=== PATIENT | female | born 1950 | race Caucasian/White ===

== ENCOUNTER 2019-05-27 14:34 | Emergency (ER) | payer OTHER, SELFPAY ==
[2019-05-27 14:48] VITALS: BP 159/94; PULSE 91; RESP 18; TEMP 36.3; O2SAT 98; BMI 21.2
--- NOTE | 2019-05-27 15:01 | ED.GENADULT ---
HPI - General Adult General Chief complaint: Abdominal Pain Stated complaint: NAUSEA FEVER CHILLS CANT EAT Time Seen by Provider: 05/27/19 15:00 Source: patient Mode of arrival: Family Vehicle Limitations: no limitations History of Present Illness HPI narrative: 69-year-old woman presents with 6 days of nausea vomiting dry heaves she is able to keep some fluids down but feeling that she is getting progressively worse. Now with increasing tremor increasing global weakness. She has not had diarrhea and does report that she has very slow bowels and typically does a coffee enema every morning and has a bowel movement after this. She has been having brief episodes of hot and cold (episodes lasting less than a minute a piece) no measured temperatures, no cough, she has mild right lower quadrant pain on deep palpation only. She describes no rashes and notes that she is able to maintain her weight with liquids only and has not lost significant amount of weight recently. She has had a similar episode approximately 6 months ago with no clear diagnosis found at that time Related Data Home Medications Medication Instructions Recorded Confirmed MULTIVITAMIN (Multivitamin 1 cap PO EVERY DAY #0 10/17/07 -) CALCIUM CITRATE (#CORTEZ-CITRATE) 250 mg PO QDAY #0 04/13/11 CHOLECALCIFEROL (VITAMIN D3) 2,000 iu PO QDAY #0 04/13/11 (Vitamin D) CYANOCOBALAMIN (VITAMIN B-12) 1,000 mcg PO QDAY #0 04/13/11 (Vitamin B-12) Pyridoxine (#VITAMIN B6) #0 04/13/11 Previous Rx's Medication Instructions Recorded ondansetron HCl [Zofran] 4 mg PO Q8H PRN #14 tab 05/27/19 Allergies Allergy/AdvReac Type Severity Reaction Status Date / Time amoxicillin AdvReac Gastrointestinal Verified 05/27/19 14:55 Upset clindamycin AdvReac Gastrointestinal Verified 05/27/19 14:55 Upset Penicillins AdvReac Gastrointestinal Verified 05/27/19 14:55 Upset Review of Systems Review of Systems ROS Unobtainable: All systems reviewed & are unremarkable except as noted in HPI and below Patient History Social History Smoking Status: Never smoker Smoking Status: Never smoker alcohol intake frequency: 3 or more drinks per day Alcohol type: wine Substance Use Type: does not use Exam Narrative Exam Narrative: General: Healthy appearing, in mild distress. Able to give a complete and coherent history. Well-nourished well-developed HEENT: Mildly dry mucous membranes, normal sclera with reactive pupils, Neck: No JVD, supple Respiratory: Lungs are clear to auscultation, no wheezing no rales no rhonchi. Full and symmetrical air movement Cardiac: Regular rate and rhythm no murmurs no bruits Abdomen: Soft, mild tenderness with deep palpation in the right lower quadrant, good bowel tones, no flank pain Skin: Warm and dry, no rashes Neurologic: Grossly neurologically intact with no obvious asymmetries. She does have a bilateral coarse tremor in both upper extremities Extremities: No trauma, well perfused Psych: Cooperative, appropriate insight and affect Initial Vital Signs Initial Vital Signs: Vital Signs Temperature 97.4 F L 05/27/19 14:48 Pulse Rate 91 H 05/27/19 14:48 Respiratory Rate 18 05/27/19 14:48 Blood Pressure 159/94 H 05/27/19 14:48 Pulse Oximetry 98 05/27/19 14:48 Course Orders Ordered: ED Orders 05/27/19 15:15 XR abdomen 1V Stat 05/27/19 15:36 Complete Blood Count AUTO DIFF Stat Comprehensive Metabolic Panel Stat Lipase Stat Thyroid Stimulating Hormone Stat Discontinued Medications Sodium Chloride (Normal Saline 0.9%) 500 mls @ 1,000 mls/hr IV BOLUS ONE Stop: 05/27/19 15:42 Last Infusion: 05/27/19 16:22 Dose: 0 mls/hr Documented by: Admin: 05/27/19 15:52 Dose: 1,000 mls/hr Documented by: SPENCER Metoclopramide HCl (Reglan) 10 mg IV NOW ONE Stop: 05/27/19 15:14 Last Admin: 05/27/19 15:53 Dose: 10 mg Documented by: SPENCER Ondansetron HCl (Zofran) 4 mg IV NOW ONE Stop: 05/27/19 15:14 Last Admin: 05/27/19 15:53 Dose: 4 mg Documented by: SPENCER Vital Signs Vital signs: Vital Signs - 8 hr 05/27/19 14:48 05/27/19 16:00 05/27/19 16:35 Temperature 97.4 F L Pulse Rate 91 H 88 87 Respiratory Rate 18 10 L 11 L Blood Pressure 159/94 H Blood Pressure [Left Arm] 132/75 125/80 Pulse Oximetry 98 96 97 05/27/19 17:05 Temperature Pulse Rate 99 H Respiratory Rate 19 Blood Pressure Blood Pressure [Left Arm] 120/68 Pulse Oximetry 98 Medical Decision Making Differential Diagnosis Differential Diagnosis: Dehydration, acute renal failure, severe constipation, delayed gastric empt Medical Records Medical records reviewed: Yes I reviewed the patient's medical records. Lab Data Lab results reviewed: Yes I reviewed the patient's lab results. Result diagrams: 05/27/19 15:36 05/27/19 15:36 Labs: Lab Results 05/27/19 05/27/19 05/27/19 Range/Units 15:36 15:36 15:36 WBC 3.2 L (4.5-11.0) X10^3/uL RBC 3.89 L (4.0-5.2) X10^6/uL Hgb 13.5 (12.0-16.0) g/dL Hct 38.2 (36-46) % MCV 98.2 (80-100) fL MCH 34.8 H (26-34) PG MCHC 35.5 (30-36) % RDW 13.5 (11.6-14.8) % Plt Count 199 (150-400) X10^3/uL Neut % (Auto) 64.9 (50-75) % Lymph % (Auto) 22.6 L (25-40) % [place] % (Auto) 11.7 (3-14) % Eos % (Auto) 0.2 L (2-4) % Baso % (Auto) 0.6 (0-2) % Neut # (Auto) 2100 (3691-5344) /uL Lymph # (Auto) 700 L (4827-1700) /uL [place] # (Auto) 400 (0-900) /uL Eos # (Auto) 0 (0-450) /uL Baso # (Auto) 0 (0-100) /uL Sodium 137 (137-145) mmol/L Potassium 3.4 (3.4-5.1) mmol/L Chloride 99 (98-107) mmol/L Carbon Dioxide 27 (22-32) mmol/L BUN 5 L (7-17) mg/dL Creatinine 0.50 L (0.52-1.04) mg/dL Estimated GFR > 60.0 (>60) mL/min BUN/Creatinine Ratio 10.0 (6-22) Glucose 102 (80-110) mg/dL Calcium 9.7 (8.4-10.2) mg/dL Total Bilirubin 0.7 (0.2-1.3) mg/dL AST 78 H (14-36) IU/L ALT 47 H (<35) IU/L Alkaline Phosphatase 98 (38-126) U/L Total Protein 7.8 (6.3-8.2) g/dL Albumin 4.8 (3.5-5.0) g/dL Globulin 3.0 (1.7-4.1) g/dL Albumin/Globulin Ratio 1.6 (1.0-2.8) Lipase 77 (23-300) U/L TSH 1.43 (0.47-4.68) uIU/mL Urine Dip Bedside Urine Glucose Negative Bedside Urine Bilirubin - Negative Bedside Urine Ketone - Negative Urine Specific [place] 1.005 Bedside Urine Occult Blood - Negative Bedside Urine pH 6.5 Bedside Urine Protein - Negative Bedside Urine Urobilinogen - Negative Bedside Urine Nitrite - Negative Bedside Urine Leukocytes - Negative Esterase Point of care testing: Urine Dip Bedside Urine Glucose Negative Bedside Urine Bilirubin - Negative Bedside Urine Ketone - Negative Urine Specific [place] 1.005 Bedside Urine Occult Blood - Negative Bedside Urine pH 6.5 Bedside Urine Protein - Negative Bedside Urine Urobilinogen - Negative Bedside Urine Nitrite - Negative Bedside Urine Leukocytes - Negative Esterase Imaging Data Xray abd: Attestation: I personally reviewed and interpreted this imaging study as follows: Radiologist's impression: IMPRESSION: 1. Small to moderate amount of fecal loading in the colon. 2. No evidence of bowel obstruction. Dictated by: Javi Silverman M.D. on 05/27/2019 at 15:03 Discharge Plan Departure Patient Disposition: Home Clinical Impression: Nausea & vomiting Qualifiers: Vomiting type: unspecified Vomiting Intractability: non-intractable Qualified Code(s): R11.2 - Nausea with vomiting, unspecified Instructions: DI for Nausea -- Adult Activity Restrictions/Additional Instructions: Thank you for coming in today. I am pleased slight you know that your lab work was quite reassuring. Of note you're white blood cell count, the CellCept 5 infection, was slightly low. It would be worth talking with Dr. Richmond about this in about a month to see if he feels it is appropriate to recheck. There is no evidence of kidney dysfunction nor other acute life-threatening issues. The Zofran seemed to help significantly with the nausea so I am going to send her home with a prescription for oral Zofran/ondansetron to use as needed should you have for current episodes of nausea. If you're not improving please follow up with her primary care physician. If you develop severe retching, fevers, blood in her emesis or blood in her stools or simply unable to keep any foods down feel free to return to the emergency room for additional evaluation I wish you the best Prescriptions: New ondansetron HCl [Zofran] 4 mg tablet 4 mg PO Q8H PRN (Reason: nausea and vomiting) Qty: 14 RF: 0 No Action MULTIVITAMIN (Multivitamin -) 1 cap PO EVERY DAY Qty: 0 RF: 0 CYANOCOBALAMIN (VITAMIN B-12) (Vitamin B-12) 1,000 mcg PO QDAY Qty: 0 RF: 0 CHOLECALCIFEROL (VITAMIN D3) (Vitamin D) 2,000 iu PO QDAY Qty: 0 RF: 0 Pyridoxine (#VITAMIN B6) Qty: 0 RF: 0 CALCIUM CITRATE (#CORTEZ-CITRATE) 250 mg PO QDAY Qty: 0 RF: 0 Referrals: Todd Richmond MD [Primary Care Provider] -
--- NOTE | 2019-05-27 15:15 | DI.RAD.S_ITS ---
PROCEDURE: XR ABDOMEN 1V INDICATIONS: Abdominal pain, evaluate stool load TECHNIQUE: One view of the abdomen acquired. COMPARISON: None. FINDINGS: Surgical changes and devices: None. Bowel: Bowel gas pattern is within normal limits. There is a small to moderate amount of fecal load in the colon. Soft tissues: No suspicious abdominal calcifications. Bones: No suspicious bony lesions. IMPRESSION: 1. Small to moderate amount of fecal loading in the colon. 2. No evidence of bowel obstruction. Dictated by: Javi Silverman M.D. on 05/27/2019 at 15:03 Approved by: Javi Silverman M.D. on 05/27/2019 at 15:07
[2019-05-27 15:43] LABS: Add Manual Diff / Slide Review NO; Basophils Absolute Auto 0 /uL (0-100); Basophils Percent Auto 0.6 % (0-2); Eosinophils Absolute Auto 0 /uL (0-450); Eosinophils Percent Auto 0.2 % (2-4); Hematocrit 38.2 % (36-46); Hemoglobin 13.5 g/dL (12.0-16.0); Lymphocytes Absolute Auto 700 /uL (1100-4500); Lymphocytes Percent Auto 22.6 % (25-40); Mean Corpuscular HGB Conc 35.5 % (30-36); Mean Corpuscular Hemoglobin 34.8 PG (26-34); Mean Corpuscular Volume 98.2 fL (80-100); Monocytes Absolute Auto 400 /uL (0-900); Monocytes Percent Auto 11.7 % (3-14); Neutrophils Absolute Auto 2100 /uL (1500-7000); Neutrophils Percent Auto 64.9 % (50-75); Platelet Count 199 X10^3/uL (150-400); Red Blood Cell Count 3.89 X10^6/uL (4.0-5.2); Red Cell Distribution Width 13.5 % (11.6-14.8); White Blood Cell Count 3.2 X10^3/uL (4.5-11.0)
[2019-05-27] MEDS: SODIUM CHLORIDE 0.9% 500 ML 1000 ML IV (15:52)
[2019-05-27] MEDS: METOCLOPRAMIDE 10 MG/2 ML INJ IV (15:53)
[2019-05-27] MEDS: ONDANSETRON 4 MG/2 ML INJ IV (15:53)
[2019-05-27 15:54] LABS: Alanine Aminotransferase 47 IU/L (<35); Albumin 4.8 g/dL (3.5-5.0); Albumin Globulin Ratio 1.6 (1.0-2.8); Alkaline Phosphatase 98 U/L (38-126); Aspartate Aminotransferase 78 IU/L (14-36); Bilirubin Total 0.7 mg/dL (0.2-1.3); Blood Urea Nitrogen 5 mg/dL (7-17); Calcium 9.7 mg/dL (8.4-10.2); Carbon Dioxide 27 mmol/L (22-32); Chloride 99 mmol/L (98-107); Estimated Glomerular Filt Rate > 60.0 mL/min (>60); Glucose 102 mg/dL (80-110); HEMOLYSIS < 15 (0-50); Lipase 77 U/L (23-300); Potassium 3.4 mmol/L (3.4-5.1); Sodium 137 mmol/L (137-145); Total Protein 7.8 g/dL (6.3-8.2)
[2019-05-27 16:00] VITALS: BP 132/75; PULSE 88; RESP 10; O2SAT 96
[2019-05-27 16:35] VITALS: BP 125/80; PULSE 87; RESP 11; O2SAT 97
[2019-05-27 16:47] LABS: Thyroid Stimulating Hormone 1.43 uIU/mL (0.47-4.68)
[2019-05-27 17:05] VITALS: BP 120/68; PULSE 99; RESP 19; O2SAT 98
[2019-05-27 18:07] VITALS: BP 140/80; PULSE 93; RESP 19; O2SAT 97
== END 2019-05-27 18:11 | disposition home or self-care (01) ==
PROVIDERS: Emergency Provider Emergency Medicine; Family Provider Family Medicine; PCP Family Medicine
DX: R11.2 Nausea with vomiting, unspecified (principal); R79.89 Other specified abnormal findings of blood chemistry
CPT/HCPCS: 36415; 74018; 80053; 81003; 83690; 84443; 85025; 96374; 96375; 99284; J2405; J2765

== ENCOUNTER → 2019-12-11 12:26 | Outpatient (CLI) | payer MEDICARE, SELFPAY ==
--- NOTE | 2019-12-11 12:28 | DI.RAD.S_ITS ---
PROCEDURE: XR LUMBAR SPINE MIN 4V INDICATIONS: post lami syndrome TECHNIQUE: 5 views of the lumbar spine were acquired. COMPARISON: Outside Facility, RG, XR LUMBAR SPINE 6+ VIEWS, 10/09/2019, 14:37. FINDINGS: Bones: 5 nonrib-bearing vertebrae are present. There is normal bony alignment. Multilevel severe disc space narrowing is present throughout the lumbar spine. Severe foraminal narrowing is noted at L2-3, L5-S1 as well as moderate to severe at L3-4 and L4-5. No vertebral body compression fractures. No suspicious bony lesions. The foraminal narrowing appears slightly more prominent when compared to prior exam. Soft tissues: Overlying bowel gas pattern is normal. No suspicious soft tissue calcifications. Oblique images: No pars defects. IMPRESSION: Multilevel degenerative changes as above. Overall slightly more prominent appearance of foraminal narrowing compared to prior exam. However, this could be positional in nature. Dictated by: Serenity Albarran M.D. on 12/11/2019 at 17:34 Approved by: Serenity Albarran M.D. on 12/11/2019 at 17:36
== END ==
PROVIDERS: Family Provider Family Medicine; PCP Family Medicine; Referring Provider Physical Medicine & Rehabilitation; Visit Provider Physical Medicine & Rehabilitation
DX: M54.17 Radiculopathy, lumbosacral region (principal); M96.1 Postlaminectomy syndrome, not elsewhere classified; M48.07 Spinal stenosis, lumbosacral region; M48.061 Spinal stenosis, lumbar region without neurogenic claudication; M53.3 Sacrococcygeal disorders, not elsewhere classified; G89.4 Chronic pain syndrome; F40.240 Claustrophobia
CPT/HCPCS: 72110; 99215

== ENCOUNTER → 2020-01-22 09:37 | Outpatient (CLI) | payer MEDICARE, SELFPAY ==
--- NOTE | 2020-01-22 09:38 | DI.MRI.S_ITS ---
PROCEDURE: MR LUMBAR SPINE WO/W CON INDICATIONS: post lami syndrome TECHNIQUE: Noncontrast sagittal T1 spin echo and T2 fast spin echo, sagittal STIR, axial T1 and T2 fast spin echo through the lumbar spine. In cases with scoliosis, additional coronal T2 fast spin echo may be performed. After the administration of contrast, sagittal and axial T1 spin echo with fat saturation through the lumbar spine. COMPARISON: [facility], CR, XR LUMBAR SPINE MIN 4V, 12/11/2019, 12:25. FINDINGS: Image quality: Excellent. Alignment and curvature: There is normal bony alignment. Convex left scoliosis of the lumbar spine is stable compared to plain film radiographs. Marrow: Reactive endplate changes noted adjacent to the L1-L2, L2-L3, L3-L4, L4-L5 and L5-S1 discs. Benign, intraosseous hemangioma noted in the L3 vertebral body. No acute vertebral body compression fractures. No suspicious marrow enhancement. Spinal cord: Conus medullaris terminates at the L1-2 disc level. Visualized spinal cord demonstrates normal signal, without suspicious enhancement. Paraspinous soft tissues: No paravertebral masses or abnormal enhancement. L1-L2: Loss of disc signal and height. Mild, diffuse disc bulge. Mild bilateral facet hypertrophy. Mild narrowing of the central canal. Moderate bilateral neural foraminal narrowing. No neural compression. L2-L3: Loss of disc signal and height. Mild, diffuse disc bulge. Mild bilateral facet hypertrophy. Mild ligamentum flavum hypertrophy. Mild to moderate narrowing of the central canal. Moderate bilateral neural foraminal narrowing. No neural compression. L3-L4: Loss of disc signal and height. Mild, diffuse disc bulge. Moderate facet and moderate ligamentum flavum hypertrophy. Moderate to severe narrowing of the central canal. Severe right and [id number] left neural foraminal narrowing with compression of the exiting right L3 nerve root. L4-L5: Loss of disc signal and height. Mild to moderate diffuse disc bulge. Moderate facet hypertrophy. Moderate to severe narrowing of the central canal. Severe right and moderate left neural foraminal narrowing with compression of the exiting right L4 nerve root. L5-S1: Loss of disc signal. Mild, diffuse disc bulge. Mild bilateral facet hypertrophy. No central stenosis. Mild right and severe left neural foraminal narrowing with compression exiting left L5 nerve root. IMPRESSION: 1. Convex left scoliosis. 2. Multilevel degenerative disc disease. 3. Multilevel facet arthropathy. 4. Moderate to severe L3-L4 and L4-L5 central canal narrowing.. 5. Severe right L3-L4 neural foraminal narrowing with compression exiting right L3 nerve root. Severe right L4-L5 neural foraminal narrowing with compression of the exiting right L4 nerve root. Severe left L5-S1 neural foraminal narrowing with compression of the exiting left L5 nerve root. Dictated by: Sofía Ayala MD, PhD on 01/22/2020 at 14:30 Approved by: Sofía Ayala MD, PhD on 01/22/2020 at 14:52
== END ==
PROVIDERS: Family Provider Family Medicine; PCP Family Medicine; Referring Provider Physical Medicine & Rehabilitation; Visit Provider Physical Medicine & Rehabilitation
DX: M96.1 Postlaminectomy syndrome, not elsewhere classified (principal); M51.16 Intervertebral disc disorders with radiculopathy, lumbar region; M51.17 Intervertebral disc disorders with radiculopathy, lumbosacral region; M47.26 Other spondylosis with radiculopathy, lumbar region; M47.27 Other spondylosis with radiculopathy, lumbosacral region; M48.061 Spinal stenosis, lumbar region without neurogenic claudication; M48.07 Spinal stenosis, lumbosacral region; F40.240 Claustrophobia
CPT/HCPCS: 72158; 99214; A9579

== ENCOUNTER → 2022-11-04 10:11 | Outpatient (CLI) | payer MEDICARE, SELFPAY ==
--- NOTE | 2022-11-04 10:14 | DI.RAD.S_ITS ---
PROCEDURE: XR KNEE LT 3V INDICATIONS: LEFT KNEE PAIN TECHNIQUE: 3 views of the knee were acquired. COMPARISON: [facility], XR KNEE 2V LEFT, 04/19/2015, 15:37. FINDINGS: Bones: No fractures or dislocations. No suspicious bony lesions. Ycwu-ep-zimqlueb tricompartmental knee joint degeneration. Soft tissues: Small joint effusion. No suspicious soft tissue calcifications. IMPRESSION: 1. Wcpi-bp-gerfgiva degenerative joint disease. 2. Small knee joint effusion. Dictated by: Lori Connors M.D. on 11/04/2022 at 13:57 Approved by: Lori Connors M.D. on 11/04/2022 at 13:58
--- NOTE | 2022-11-04 10:14 | DI.RAD.S_ITS ---
PROCEDURE: XR THORACIC SPINE 3V INDICATIONS: thoracic pain TECHNIQUE: 3 views of the thoracic spine were acquired. COMPARISON: [facility], CR, XR LUMBAR SPINE MIN 4V, 11/04/2022, 10:10. FINDINGS: Bones: No fractures or dislocations. No suspicious bony lesions. Scoliosis with the apex at L2-L3. Grade 1 anterolisthesis of C4 on C5. Degenerative disc disease in cervical, thoracic spine and lumbar spine, moderate to severe at C5-C6, C6-C7, T12-L1, L1-L2 and L2-L3 mild at T7-T8, T8-T9, T9-T10, T10-T11 and T11-T12.. 12 pairs of ribs are noted, and appear intact where visualized. Soft tissues: No paravertebral stripe thickening. IMPRESSION: 1. Scoliosis and degenerative changes as described. Dictated by: Lori Connors M.D. on 11/04/2022 at 13:58 Approved by: Lori Connors M.D. on 11/04/2022 at 14:01
--- NOTE | 2022-11-04 10:14 | DI.RAD.S_ITS ---
PROCEDURE: XR LUMBAR SPINE MIN 4V INDICATIONS: BACK PAIN TECHNIQUE: 5 views of the lumbar spine were acquired, including bilateral oblique views. COMPARISON: [facility], CR, XR THORACIC SPINE 3V, 11/04/2022, 10:10. Outside Facility, RG, XR LUMBAR SPINE 6+ VIEWS, 10/09/2019, 14:37. MR, MR LUMBAR SPINE WO/W CON, 01/22/2020, 11:05. [facility], CR, XR LUMBAR SPINE MIN 4V, 12/11/2019, 12:25. FINDINGS: Bones: 5 nonrib-bearing vertebrae are present. There is moderate levoscoliosis with the apex at L3. No vertebral body compression fractures. No suspicious bony lesions. Degenerative disc disease, severe at L1-L2, L2-L3, L3-L4 and L4-L5, moderate at T12-L1 and L5-S1. Moderate facet arthropathy at L4-L5 and L5-S1. Soft tissues: Overlying bowel gas pattern is normal. No suspicious soft tissue calcifications. Oblique images: No pars defects. IMPRESSION: 1. Scoliosis. 2. Degenerative disc and facet disease as described. Dictated by: Lori Connors M.D. on 11/04/2022 at 14:01 Approved by: Lori Connors M.D. on 11/04/2022 at 14:03
== END ==
PROVIDERS: Family Provider Family Medicine; PCP Family Medicine; Referring Provider Physical Medicine & Rehabilitation; Visit Provider Physical Medicine & Rehabilitation
DX: M19.90 Unspecified osteoarthritis, unspecified site (principal); M25.462 Effusion, left knee; M41.9 Scoliosis, unspecified; M17.0 Bilateral primary osteoarthritis of knee; M41.25 Other idiopathic scoliosis, thoracolumbar region; M47.816 Spondylosis without myelopathy or radiculopathy, lumbar region; F40.240 Claustrophobia; M53.3 Sacrococcygeal disorders, not elsewhere classified; M54.17 Radiculopathy, lumbosacral region; M96.1 Postlaminectomy syndrome, not elsewhere classified
CPT/HCPCS: 72072; 72110; 73562; 99214

== ENCOUNTER → 2023-07-21 11:40 | Outpatient (CLI) | payer MEDICARE, SELFPAY ==
--- NOTE | 2023-07-21 12:39 | DI.RAD.S_ITS ---
PROCEDURE: XR CERVICAL SPINE 4V OR 5V INDICATIONS: NECK PAIN TECHNIQUE: 5 total views of the cervical spine were acquired, including bilateral oblique views. COMPARISON: [facility], CR, XR LUMBAR SPINE MIN 4V, 07/21/2023, 12:43. FINDINGS: Bones: No fractures or dislocations to the T1 level. No suspicious lytic or blastic lesions are seen. There is overall straightening of the normal cervical lordosis. Minimal anterolisthesis can be seen at C4-C5, with minimal retrolisthesis at C5-C6. Focal degenerative change is seen involving the C1-C2 interface anteriorly. There is mild disc space narrowing seen at C3-C4. Moderate to severe disc space narrowing can be seen at C5-C6 and C6-C7. On oblique images, there is [id number]-[id number] neural foraminal narrowing seen on the left at C3-C4, with at least moderate neural foraminal narrowing seen at C5-C6 and C6-C7. On the right, there is moderate neural foraminal narrowing seen at C4-C5, with moderate to severe neural foraminal narrowing at seen at C5-C6 and C6-C7. Soft tissues: No prevertebral soft tissue swelling. The visualized lung apices are unremarkable. IMPRESSION: Cervical spine degenerative changes are seen, which are worst inferiorly. Dictated by: Jeremy Jones M.D. on 07/21/2023 at 12:44 Approved by: Jeremy Jones M.D. on 07/21/2023 at 12:45
--- NOTE | 2023-07-21 12:39 | DI.RAD.S_ITS ---
PROCEDURE: XR LUMBAR SPINE MIN 4V INDICATIONS: BACK PAIN TECHNIQUE: 5 views of the lumbar spine were acquired, including bilateral oblique views. COMPARISON: [facility], MR, MR LUMBAR SPINE WO/W CON, 01/22/2020, 11:05. [facility], CR, XR LUMBAR SPINE MIN 4V, 11/04/2022, 10:10. [facility], CR, XR LUMBAR SPINE MIN 4V, 12/11/2019, 12:25. Outside Facility, RG, XR LUMBAR SPINE 6+ VIEWS, 10/09/2019, 14:37. FINDINGS: Bones: 5 nonrib-bearing vertebrae are present. No vertebral body compression fractures. No suspicious bony lesions. Mild to moderate levoconvex scoliotic curvature is noted. No focal AP alignment abnormality is seen. There is moderate to severe disc space narrowing seen at each lumbar level, although with moderate disc space narrowing at L5-S1. Endplate irregularity and sclerosis are seen, which are worst at L3-L4 and L4-L5. Lower lumbar spine facet arthropathy is seen. At least moderate bilateral hip degenerative change can be seen, left worse than right. Soft tissues: Overlying bowel gas pattern is normal. No suspicious soft tissue calcifications. Oblique images: No pars defects. IMPRESSION: Levoconvex scoliosis and multiple levels of significant lumbar spine degenerative change can be seen. The degenerative changes have progressed over time. Note is also made of bilateral hip degenerative change, left worse than right. Dictated by: Jeremy Jones M.D. on 07/21/2023 at 12:46 Approved by: Jeremy Jones M.D. on 07/21/2023 at 12:48
== END ==
PROVIDERS: Family Provider Family Medicine; PCP Family Medicine; Referring Provider Physical Medicine & Rehabilitation; Visit Provider Physical Medicine & Rehabilitation
DX: M54.17 Radiculopathy, lumbosacral region (principal); M47.816 Spondylosis without myelopathy or radiculopathy, lumbar region; M47.812 Spondylosis without myelopathy or radiculopathy, cervical region; M54.2 Cervicalgia; M41.9 Scoliosis, unspecified; M96.1 Postlaminectomy syndrome, not elsewhere classified
CPT/HCPCS: 72050; 72110; 99214

== ENCOUNTER → 2024-06-21 11:31 | Outpatient (CLI) | payer MEDICARE, SELFPAY ==
--- NOTE | 2024-06-21 11:37 | DI.RAD.S_ITS ---
PROCEDURE: XR DEXA AXIAL SKELETON INDICATIONS: OSTEOPOROSIS SCREENING COMPARISON: None. FINDINGS: Lumbar Spine: L1-L2. Bone mineral density 0.965 g/cm2, T score -0.1. Left Hip: Bone mineral density 0.706 g/cm2, T score -1.9. Left Femoral Neck: Bone mineral density 0.588 g/cm2, T score -2.4. Fracture Risk Calculation (when applicable): 10-year fracture risk of a major osteoporotic fracture 26 percent and of a hip fracture 17 percent. (T score greater or equal to -1.0 to: NORMAL) (T score from -1.1 to -2.4: OSTEOPENIA) (T score less than or equal to -2.5: OSTEOPOROSIS) IMPRESSION: Osteopenia. Follow-up guidelines as follows: Osteoporosis: Consider a repeat DEXA and Vertebral Fracture Assessment (VFA) exam in 2 years or sooner if medically necessary, to reassess this patient's status. Osteopenia: Consider a repeat DEXA in 2-3 years to reassess this patient's status, or if there is a new clinical indication. Normal: Consider a repeat DEXA in 5 years or sooner, or if there is a new clinical indication. All treatment decisions require clinical judgment and consideration of individual patient factors, including patient preferences, comorbidities, previous drug use, risk factors not captured in the FRAX model (e.g., frailty, falls, vitamin D deficiency, increased bone turnover, interval significant decline in bone density ) and possible under- or over-estimation of fracture risk by FRAX. In addition, the NOF Guide recommends that FDA-approved medical therapies be considered in postmenopausal women and men age >= 50 years with a: * Hip or vertebral (clinical or morphometric) fracture * T-score of <=-2.5 at the spine or hip * Ten-year fracture probability by FRAX of >= 3% for hip fracture or >=20% for major osteoporotic fracture. People with diagnosed cases of osteoporosis or at high risk for fracture should have regular bone mineral density tests. For patients eligible for Medicare, routine testing is allowed once every 2 years. The testing frequency can be increased to one year for patients who have rapidly progressing disease, those who are receiving or discontinuing medical therapy to restore bone mass, or have additional risk factors. Dictated by: Aditya Peres M.D. on 06/22/2024 at 22:29 Approved by: Aditya Peres M.D. on 06/22/2024 at 22:30
== END ==
LOC: RAD 11:35
PROVIDERS: PCP Family Medicine; Referring Provider Family Medicine; Visit Provider Family Medicine
DX: M85.852 Other specified disorders of bone density and structure, left thigh (principal); Z13.820 Encounter for screening for osteoporosis; Z78.0 Asymptomatic menopausal state
CPT/HCPCS: 77080

== ENCOUNTER → 2024-07-31 11:26 | Outpatient (CLI) | payer MEDICARE, SELFPAY ==
--- NOTE | 2024-07-31 11:28 | DI.RAD.S_ITS ---
PROCEDURE: XR HIP W PEL IF DONE DINORA MIN 4V INDICATIONS: LEFT HIP PAIN TECHNIQUE: AP pelvis with lateral view(s) of the bilateral hip(s). COMPARISON: None. FINDINGS: Bones: No fractures or dislocations. Pelvic ring appears intact. No suspicious bony lesions. Moderate bilateral hip joint space narrowing greater on the left. No femoral head remodeling. Degenerative disc disease and arthropathy in the lower lumbar spine Soft tissues: The visualized bowel gas pattern is normal. No suspicious soft tissue calcifications. IMPRESSION: Moderate bilateral hip osteoarthritis without remodeling Approved by: Dago Bonilla M.D. on 07/31/2024 at 12:33
--- NOTE | 2024-07-31 11:28 | DI.RAD.S_ITS ---
PROCEDURE: XR THORACIC SPINE 3V INDICATIONS: RIB PAIN TECHNIQUE: 3 views of the thoracic spine were acquired. COMPARISON: [facility], CR, XR THORACIC SPINE 3V, 11/04/2022, 10:10. FINDINGS: Bones: Generalized decreased osseous mineralization noted. Disc space narrowing and hypertrophic arthropathy present in the mid to lower thoracic spine. Convex left thoracolumbar scoliosis. Soft tissues: No paravertebral stripe thickening. IMPRESSION: Osteopenia and degenerative disc disease without fracture or traumatic malalignment. Thoracolumbar levoscoliosis Approved by: Dago Bonilla M.D. on 07/31/2024 at 12:31
--- NOTE | 2024-07-31 11:28 | DI.RAD.S_ITS ---
PROCEDURE: XR HUMERUS LT 2V INDICATIONS: POST LEFT HUMERUS FX TECHNIQUE: 2 views of the humerus were acquired. COMPARISON: Outside Facility, CR, XR HUMERUS LT 2V, 03/28/2024, 13:54. FINDINGS: Bones: Proximal humeral fracture transfixed by well-positioned intramedullary joey with fixation screws shows remodeling and bridging callus. Soft tissues: No suspicious soft tissue calcifications. IMPRESSION: Healing instrumented proximal humeral fracture Approved by: Dago Bonilla M.D. on 07/31/2024 at 12:32
== END ==
PROVIDERS: PCP Family Medicine; Referring Provider Physical Medicine & Rehabilitation; Visit Provider Physical Medicine & Rehabilitation
DX: S42.202D Unspecified fracture of upper end of left humerus, subsequent encounter for fracture with routine healing (principal); M89.8X2 Other specified disorders of bone, upper arm; M17.0 Bilateral primary osteoarthritis of knee; M16.0 Bilateral primary osteoarthritis of hip; M25.552 Pain in left hip; M51.34 Other intervertebral disc degeneration, thoracic region; M84.88 Other disorders of continuity of bone, other site; R07.81 Pleurodynia; M53.3 Sacrococcygeal disorders, not elsewhere classified; M47.816 Spondylosis without myelopathy or radiculopathy, lumbar region; M96.1 Postlaminectomy syndrome, not elsewhere classified; M54.17 Radiculopathy, lumbosacral region; M41.25 Other idiopathic scoliosis, thoracolumbar region; G89.4 Chronic pain syndrome
CPT/HCPCS: 72072; 73060; 73522; 99214